=== PATIENT | male | born 1940 | race American Indian/Alaskan Native ===

== ENCOUNTER 2023-12-25 04:29 | Day surgery (SDC) | payer OTHER ==
[2023-12-21 12:15] VITALS: BMI 21.2
[2023-12-25 08:40] VITALS: TEMP 97.8
[2023-12-25 09:10] VITALS: BP 139/72; PULSE 59; RESP 13
== END 2023-12-25 09:56 | disposition home or self-care (01) ==
LOC: JASU-ENDO 04:29
PROVIDERS: ATTEND Internal Medicine Gastroenterology
PROC: 0DBL8ZX Excision of Transverse Colon, Via Natural or Artificial Opening Endoscopic, Diagnostic (ICD-10-PCS; principal; 2023-12-25 08:00)
DX: Z12.11 Encounter for screening for malignant neoplasm of colon (principal); D12.3 Benign neoplasm of transverse colon; K64.8 Other hemorrhoids; K57.30 Diverticulosis of large intestine without perforation or abscess without bleeding; Z86.010 Personal history of colon polyps; Z80.0 Family history of malignant neoplasm of digestive organs
CPT/HCPCS: 88305-TC

== ENCOUNTER 2024-05-16 04:20 | Day surgery (SDC) | payer OTHER ==
[2024-05-14 12:33] VITALS: BMI 23.1
[2024-05-16] MEDS ORDERED: PROPOFOL 20 ML ONE (08:30)
[2024-05-16] MEDS ORDERED: DEXTROSE 5%-0.45% SALINE 1,000 ML IV SCH (08:45)
[2024-05-16] MEDS ORDERED: LIDOCAINE HCL 1%, 10 MG/ML (20ML VIAL) ONE (08:50)
[2024-05-16] MEDS ORDERED: BACITRACIN ZINC 15 GM TUBE TOPICAL OINTMENT ONE (08:50)
[2024-05-16] MEDS ORDERED: MIDAZOLAM HCL 2 MG/2 ML SINGLE DOSE VIAL ONE (09:07)
[2024-05-16] MEDS: ceFAZolin SODIUM 1 GM VIAL IVPB ONE (09:34)
[2024-05-16] MEDS: LIDOCAINE HCL 1%, 10 MG/ML (50 mL VIAL) INF ONE (09:38)
[2024-05-16] MEDS: BUPIVACAINE HCL/PF 0.5% (5MG/ML) 10 ML VIAL IJ ONE (09:38)
[2024-05-16] MEDS ORDERED: ONDANSETRON 4 MG/2 ML VIAL ONE (09:55)
[2024-05-16] MEDS ORDERED: DEXAMETHASONE SOD PHOSPHATE 4 MG/1 ML VIAL ONE (09:55)
[2024-05-16] MEDS ORDERED: LACTATED RINGERS SOLUTION 1,000 ML IV SCH (10:15)
[2024-05-16 11:37] VITALS: TEMP 97.3
[2024-05-16 13:29] VITALS: BP 110/68; PULSE 64; RESP 16
== END 2024-05-16 13:27 | disposition home or self-care (01) ==
LOC: JASU-SURG 04:20
PROVIDERS: ATTEND Urology
PROC: 0VTTXZZ Resection of Prepuce, External Approach (ICD-10-PCS; principal; 2024-05-16 08:30)
DX: N47.1 Phimosis (principal); N48.1 Balanitis
CPT/HCPCS: 88304-TC; 94760